=== PATIENT | female | born 1990 | race Caucasian/White ===

== ENCOUNTER 2021-12-01 12:00 | Observation (INO) | payer OTHER ==
[~2021-12-01] VITALS: Ht 149.9 cm; Wt 68.0 kg
[2021-12-01 14:11] LABS: CLARITY URINE CLEAR (CLEAR); COLOR URINE YELLOW (YELLOW); KETONES URINE NEGATIVE (NEGATIVE); LEUKOCYTE ESTERASE URINE NEGATIVE (NEGATIVE); NITRITE URINE NEGATIVE (NEGATIVE); OCCULT BLOOD URINE NEGATIVE (NEGATIVE); PROTEIN URINE NEGATIVE (NEGATIVE); SPECIFIC GRAVITY URINE 1.005 (1.005-1.030); UROBILINOGEN URINE 0.2 E.U./dL (0.2-1.0)
[2021-12-01] MEDS ORDERED: PNV1TABL50 MT (15:13)
== END 2021-12-01 15:33 | disposition home or self-care (01) ==
LOC: 8 EST LDRP 12:00
PROVIDERS: ADMIT Specialist; ATTEND Specialist
DX: O36.8130 Decreased fetal movements, third trimester, not applicable or unspecified (principal); Z3A.38 38 weeks gestation of pregnancy
CPT/HCPCS: 59025; 76805; 76818; 81003; G0378; 99281; G0379

== ENCOUNTER 2021-12-09 09:22 | Observation (INO) | payer OTHER ==
[~2021-12-09] VITALS: Ht 149.9 cm; Wt 69.4 kg
[~2021-12-09 09:22] MED LIST: PNV1TABL50 MT
== END 2021-12-09 12:10 | disposition home or self-care (01) ==
LOC: 8 EST LDRP 09:22
PROVIDERS: ADMIT Obstetrics & Gynecology; ATTEND Obstetrics & Gynecology
DX: O26.853 Spotting complicating pregnancy, third trimester (principal); Z3A.39 39 weeks gestation of pregnancy
CPT/HCPCS: 59025; 76805; 76818; G0378; 99281; G0379

== ENCOUNTER 2021-12-10 | Inpatient (IN) | payer OTHER ==
[~2021-12-10] VITALS: Ht 149.9 cm; Wt 68.9 kg
[2021-12-10] MEDS ORDERED: CARBOPROST TROMETHAMINE 250 MCG/ML AMPUL IM PRN (01:00)
[2021-12-10] MEDS ORDERED: BUTORPHANOL TARTRATE 2 MG/ML VIAL IV PRN (01:00)
[2021-12-10] MEDS ORDERED: RHO(D) IMMUNE GLOBULIN 300 MCG/SYR IM ONE (01:00)
[2021-12-10] MEDS ORDERED: NALOXONE HCL 0.4 MG/ML 1ML VIAL IM PRN (01:00)
[2021-12-10] MEDS ORDERED: DEXT 5%/LR + PITOCIN 20UNITS/L 1,000 ML IV SCH ×2 (01:00→11:15)
[2021-12-10] MEDS ORDERED: METHYLERGONOVINE MALEATE 0.2 MG/ML IM PRN (01:00)
[2021-12-10] MEDS ORDERED: LIDOCAINE HCL 1% 30ML VIAL (10MG/ML) INFIL SCH (01:30)
[2021-12-10] MEDS: LACTATED RINGERS 1,000 ML IV SCH ×3 (01:43→09:11)
[2021-12-10 01:49] LABS: BASOPHILS % 0.2 % (0.0-2.0); EOSINOPHILS % 2.6 % (0.0-5.0); HEMATOCRIT. 36.8 % (36.0-48.0); HEMOGLOBIN. 12.3 g/dL (12.0-16.0); LYMPHOCYTES % 30.7 % (20.0-50.0); MEAN CORPUSCULAR HEMOGLOBIN 29.3 pg (28.0-32.0); MEAN CORPUSCULAR VOLUME 87.6 fL (81.0-99.0); MEAN PLATELET VOLUME 10.2 fl (7.4-10.4); MONOCYTES % 11.8 % (2.0-8.0); NEUTROPHILS % 54.7 % (40.0-76.0); PLATELET 185 x1000/uL (130-400); RED CELL DISTRIBUTION WIDTH 14.4 % (11.6-14.6)
[2021-12-10] MEDS ORDERED: PENICILLIN G POTASSIUM 5 MMU in DEXT 5% WATER 100 ML IV SCH (02:00)
[2021-12-10] MEDS ORDERED: DIPHENHYDRAMINE 50MG/ML VIAL IV PRN (03:00)
[2021-12-10] MEDS ORDERED: ONDANSETRON HCL 4MG/2ML INJ IV PRN (03:00)
[2021-12-10] MEDS ORDERED: ROPIVACAINE HCL/PF EPIDURAL 200 ML EPI SCH (03:00)
[2021-12-10 03:10] LABS: INR 0.9; PARTIAL THROMBOPLASTIN TIME 27.3 sec (23.4-31.0); PROTHROMBIN TIME 9.8 sec (9.6-11.0)
[2021-12-10] MEDS ORDERED: BUPIVACAINE HCL/PF 0.25% (2.5MG/ML) 10ML ONE (03:21)
[2021-12-10 03:27] LABS: HEPATITIS B SURFACE ANTIGEN NEGATIVE
[2021-12-10 04:46] LABS: CLARITY URINE CLEAR (CLEAR); COLOR URINE YELLOW (YELLOW); KETONES URINE 1+ (NEGATIVE); LEUKOCYTE ESTERASE URINE NEGATIVE (NEGATIVE); NITRITE URINE NEGATIVE (NEGATIVE); OCCULT BLOOD URINE NEGATIVE (NEGATIVE); PROTEIN URINE NEGATIVE (NEGATIVE); SPECIFIC GRAVITY URINE 1.017 (1.005-1.030); UROBILINOGEN URINE 0.2 E.U./dL (0.2-1.0)
[2021-12-10 05:20] LABS: *AMPHETAMINES SCREEN URINE NEGATIVE (NEGATIVE)
[2021-12-10 05:21] LABS: *BARBITURATES SCREEN URINE NEGATIVE (NEGATIVE); *BENZODIAZEPINES SCREEN URINE NEGATIVE (NEGATIVE); *COCAINE SCREEN URINE NEGATIVE (NEGATIVE); CANNABINOID URINE SCREEN NEGATIVE (NEGATIVE); METHADONE URINE SCREEN NEGATIVE (NEGATIVE); OPIATES URINE SCREEN NEGATIVE (NEGATIVE); PHENCYCLIDINE URINE SCREEN NEGATIVE (NEGATIVE)
[2021-12-10] MEDS ORDERED: PENICILLIN G POTASSIUM 2.5 MMU in DEXTROSE 5% WATER 50 ML IV SCH (06:00)
[2021-12-10] MEDS ORDERED: ACETAMINOPHEN WITH CODEINE 300/30MG TABLET PO PRN (11:15)
[2021-12-10] MEDS ORDERED: HEMORRHOIDAL SUPP PR PRN (11:15)
[2021-12-10] MEDS ORDERED: LANOLIN OINT 7GM TUBE TOP PRN (11:15)
[2021-12-10] MEDS ORDERED: IBUPROFEN 800MG TABLET PO PRN (11:15)
[2021-12-10] MEDS ORDERED: BISACODYL 10MG SUPP PR PRN (11:15)
[2021-12-10] MEDS ORDERED: IBUPROFEN 400MG TABLET PO PRN (11:15)
[2021-12-10] MEDS ORDERED: BENZOCAINE/LANOLIN/ALOE VERA SPRAY TOP PRN (11:15)
[2021-12-10] MEDS ORDERED: RHO(D) IMMUNE GLOBULIN 300 MCG/SYR IM PRN (11:15)
[2021-12-10] MEDS ORDERED: DIPHENHYDRAMINE 25MG CAPSULE PO PRN (11:15)
[2021-12-10 14:45] VITALS: BP 119/54
[2021-12-10 16:00] VITALS: BP 117/65
[2021-12-10 20:00] VITALS: BP 104/53
[2021-12-10] MEDS: SIMETHICONE 80MG TABLET CHEW PO SCH (22:13)
[2021-12-10] MEDS: DOCUSATE SODIUM 100MG CAPSULE PO SCH (22:13)
[2021-12-10] MEDS: MAGNESIUM/ALUMINUM HYDROXIDE/SIMETHICONE 30ML UDC PO SCH (22:13)
[2021-12-11 04:00] VITALS: BP 113/61
[2021-12-11] MEDS: MAGNESIUM/ALUMINUM HYDROXIDE/SIMETHICONE 30ML UDC PO SCH ×4 (07:30→21:03)
[2021-12-11 08:00] VITALS: BP 103/54
[2021-12-11] MEDS ORDERED: PRENATAL VIT/FE FUMARATE/FA TABLET PO SCH (09:00)
[2021-12-11] MEDS: FERROUS SULFATE 325MG TABLET PO SCH ×3 (09:08→17:58)
[2021-12-11] MEDS: SIMETHICONE 80MG TABLET CHEW PO SCH ×4 (09:08→21:03)
[2021-12-11 10:11] LABS: BASOPHILS % 0.3 % (0.0-2.0); EOSINOPHILS % 1.8 % (0.0-5.0); HEMATOCRIT. 34.5 % (36.0-48.0); HEMOGLOBIN. 11.6 g/dL (12.0-16.0); LYMPHOCYTES % 15.9 % (20.0-50.0); MEAN CORPUSCULAR HEMOGLOBIN 29.5 pg (28.0-32.0); MEAN CORPUSCULAR VOLUME 87.5 fL (81.0-99.0); MEAN PLATELET VOLUME 9.9 fl (7.4-10.4); MONOCYTES % 7.7 % (2.0-8.0); NEUTROPHILS % 74.3 % (40.0-76.0); PLATELET 152 x1000/uL (130-400); RED BLOOD CELL COUNT 3.94 mill/uL (4.2-5.4); RED CELL DISTRIBUTION WIDTH 14.3 % (11.6-14.6)
[2021-12-11 15:29] VITALS: BP 105/60
[2021-12-11 20:20] VITALS: BP 112/62
[2021-12-11] MEDS: DOCUSATE SODIUM 100MG CAPSULE PO SCH (21:03)
[2021-12-12 00:05] VITALS: BP 120/51
[2021-12-12 04:00] VITALS: BP 110/70
[2021-12-12 07:30] VITALS: BP 102/58
== END 2021-12-13 01:00 | disposition home or self-care (01) | DRG 560 ==
LOC: 8 EST LDRP → OBSVTOIN → 8EST 14:00
PROVIDERS: ADMIT Obstetrics & Gynecology; ATTEND Obstetrics & Gynecology
PROC: 10E0XZZ Delivery of Products of Conception, External Approach (ICD-10-PCS; principal; 2021-12-10)
PROC: 3E0R3BZ Introduction of Anesthetic Agent into Spinal Canal, Percutaneous Approach (ICD-10-PCS; 2021-12-10)
PROC: 00HU33Z Insertion of Infusion Device into Spinal Canal, Percutaneous Approach (ICD-10-PCS; 2021-12-10)
DX: O90.81 Anemia of the puerperium (principal); Z37.0 Single live birth; D62 Acute posthemorrhagic anemia; Z3A.39 39 weeks gestation of pregnancy; Z20.822 Contact with and (suspected) exposure to COVID-19
CPT/HCPCS: 36415; 80305; 81003; 85025; 86592; 86703; 86762; 86850; 86900; 87340; 87426; J2540; J2590; J2795; J3490; J7060; A4315